=== PATIENT | female | born 1990 | race Caucasian/White ===

== ENCOUNTER → 2016-07-04 | Outpatient (CLI) | payer OTHER ==
[2016-07-04 10:16] LABS: CHCM 34.1; HCT 34.8 % (34.0-46.0); HDW 2.95; MCH 35.6 pg (25.0-35.0); MCHC 34.4 g/dL (31.0-37.0); MCV 103.4 fL (80.0-100.0); Macrocytosis Slight; Mean Platelet Volume 8.4; RBC 3.37 m/uL (3.80-5.40); RDW 13.3 % (11.5-15.5); WBC 7.2 k/uL (3.8-10.6)
== END | disposition home or self-care (01) ==
LOC: LABWHC1 09:50
PROVIDERS: ATTEND Obstetrics & Gynecology
DX: Z34.82 Encounter for supervision of other normal pregnancy, second trimester (principal); Z3A.00 Weeks of gestation of pregnancy not specified
CPT/HCPCS: 36415; 82950; 85027

== ENCOUNTER → 2016-07-14 | Outpatient (CLI) | payer OTHER ==
[2016-07-14 12:45] LABS: Glucose 3 Hour, Gest 93 mg/dL
== END | disposition home or self-care (01) ==
LOC: LABWHC1 08:30
PROVIDERS: ATTEND Obstetrics & Gynecology
DX: O24.419 Gestational diabetes mellitus in pregnancy, unspecified control (principal)
CPT/HCPCS: 36415; 82951; 82952

== ENCOUNTER 2016-08-20 17:07 | Inpatient (IN) | payer OTHER ==
[2016-08-20] MEDS: BETAMET ACET-BETAMETH SOD PHOS 6 MG/ML VIAL IM SCH (17:38)
[2016-08-20] MEDS ORDERED: LACTATED RINGERS 1,000 ML IV SCH (17:45)
[2016-08-20] MEDS: LACTATED RINGERS 1,000 ML IV SCH (19:19)
[2016-08-20] MEDS: NIFEdipine 10 MG CAP PO PRN ×3 (19:24→20:05)
[2016-08-20 20:53] LABS: Basophils % (A) 0 %; CH 35.5; Eosinophils # (A) 0.1 k/uL (0-0.7); Eosinophils % (A) 1 %; HDW 2.71; HGB 11.7 gm/dL (11.4-16.0); Luc % (Auto) 2; Lymphocytes # (A) 2.5 k/uL (1.0-4.8); Lymphocytes % (A) 24 %; MCH 35.1 pg (25.0-35.0); MCHC 33.3 g/dL (31.0-37.0); MCV 105.3 fL (80.0-100.0); Macrocytosis Moderate; Monocytes # (A) 0.8 k/uL (0-1.0); Monocytes % (A) 8 %; Neutrophils # (A) 7.1 k/uL (1.3-7.7); Neutrophils % (A) 66 %; RBC 3.32 m/uL (3.80-5.40); RDW 13.7 % (11.5-15.5); WBC 10.7 k/uL (3.8-10.6); WBC (Perox) 10.73
[2016-08-20 22:16] VITALS: BP 110/72; PULSE 102; RESP 16; TEMP 97; BMI 22.2
[2016-08-21] MEDS: LACTATED RINGERS 1,000 ML IV SCH ×4 (02:07→22:05)
[2016-08-21] MEDS: NIFEdipine 10 MG CAP PO PRN (02:08)
[2016-08-21] MEDS: NIFEdipine 10 MG CAP PO SCH ×3 (07:51→20:01)
--- NOTE | 2016-08-21 08:52 | P.HPOB ---
History of Present Illness H&P Date: 08/21/16 Chief Complaint: Contractions, labor This is a 25-year-old female 1 para 0 with an estimated date of confinement of 10/12/2016, estimated gestational age of 32-3/7 weeks, who presented to labor and delivery complaining of cramping and back pain for the last few days. She was seen in the office yesterday for her routine appointment and found to be dilated 1+ centimeters/70%/-1 station. At this point she was sent over to labor and delivery for steroid administration. She was noted to be miky every minute upon arrival. She was started on Procardia protocol and her contractions did slow down. Obstetrical history: First . 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 No history of sexual transmitted diseases. Review of Systems Genitourinary: Reports pelvic pain, Reports Musculoskeletal: Reports low back pain Past Medical History Additional Past Medical History / Comment(s): Bi cornate uterus History of Any Multi-Drug Resistant Organisms: None Reported Past Surgical History: No Surgical Hx Reported Past Anesthesia/Blood Transfusion Reactions: No Reported Reaction Past Psychological History: No Psychological Hx Reported Smoking Status: Never smoker - Past Family History Mother Family Medical History: No Reported History Medications and Allergies Home Medications Medication Instructions Recorded Confirmed Type Pnv with Ca,No.72/Iron/FA 1 tab PO DAILY 08/20/16 08/20/16 History [ Plus Tablet] Allergies Allergy/AdvReac Type Severity Reaction Status Date / Time No Known Allergies Allergy Verified 08/20/16 17:18 Exam Osteopathic Statement: *. No significant issues noted on an osteopathic structural exam other than those noted in the History and Physical/Consult. - Vital Signs Vital signs: Vital Signs Temp Pulse Resp BP 08/20/16 22:06 97.0 F L 102 H 16 110/72 Intake and Output 08/20/16 08/21/16 08/21/16 22:59 06:59 14:59 Intake Total 1000 Balance 1000 Intake: IV 1000 Lactated Ringers 1,000 ml 1000 @ 150 mls/hr IV .Q6H40M JAE Rx#:[id number] Other: # Voids 1 Weight 49.895 kg HEENT: Within normal limits Heart: Regular rhythm Lungs: Clear to auscultation bilaterally Abdomen: Cervix: 1+ centimeters/70%/-1 station/posterior heart tones: Reactive Contractions: Irregular any where from one to 6 minutes. Extremities: Negative Homans Results Result Diagrams: 08/20/16 17:54 Abnormal Lab Results - Last 24 Hours (Table) 08/20/16 Range/Units 17:54 WBC 10.7 H (3.8-10.6) k/uL RBC 3.32 L (3.80-5.40) m/uL MCV 105.3 H (80.0-100.0) fL MCH 35.1 H (25.0-35.0) pg Assessment and Plan (1) labor in second trimester without delivery Status: Acute Plan: I spoke with Dr. Nolan who has recommended that she stay until her second dose of steroids is in and also continue on Procardia for another 24 hours after her last dose of Celestone. After that as long as her cervix is unchanged, she may be discharged home on pelvic rest. She should continue to keep her appointment with [facility] in 2 weeks as scheduled. She does have an appointment scheduled with myself next week. She is advised she should be off work until that time. Dr. Nolan also did recommend that if she does return or breaks through with contractions and cervical change, she should at that time receive magnesium sulfate and be transferred to [place].
[2016-08-21] MEDS: BETAMET ACET-BETAMETH SOD PHOS 6 MG/ML VIAL IM SCH (17:37)
[2016-08-22] MEDS: NIFEdipine 10 MG CAP PO SCH ×3 (02:02→14:22)
--- NOTE | 2016-08-22 06:50 | P.PN ---
Progress Note - Text This is hospital day #3. Patient is resting without new complaints. Patient is received her second dose of Celestone and is currently continuing the Procardia for total of 24 hours per maternal- medicine directions. Repeat cervical exam today shows no change. Plan today is to allow the patient to shower, continue oral Procardia for total 24 hours, and most likely discharge home on modified bedrest later this evening. Patient will follow up with Dr. Sotomayor on Wednesday as scheduled.
--- NOTE | 2016-08-22 06:54 | P.DS ---
Providers Date of admission: 08/21/16 14:14 Expected date of discharge: 08/22/16 Attending physician: Concepcion Sotomayor Primary care physician: Concepcion Sotomayor [facility] Course: Please see dictated H&P per Dr. Sotomayor on this patient's admission. Brief summary this is a 25-year-old female with known bicornate uterus who is admitted with concerns for premature cervical dilation. Patient is given Celestone and oral Procardia. Patient is watched approximately 24 hours after her last Celestone injection and then thought to be stable for discharge home on modified bedrest. Patient will follow with Dr. Sotomayor on Wednesday as scheduled in the office. Patient is given warnings. Patient Condition at Discharge: Good Plan - Discharge Summary Discharge Medication List Pnv with Ca,No.72/Iron/FA [ Plus Tablet] 1 tab PO DAILY 08/20/16 [ History] Follow up Appointment(s)/Referral(s): Concepcion Sotomayor DO [Primary Care Provider] - 1 Week (Please follow-up with Dr. Sotomayor next week as scheduled.) Patient Instructions/Handouts: Labor (DC) Activity/Diet/Wound Care/Special Instructions: No intercourse or anything per vagina. No strenuous activity or prolonged standing. Please call if greater than 6 contractions per hour that do not resolve with oral hydration. Follow-up with Dr. Sotomayor as scheduled.
== END 2016-08-22 18:00 | disposition home or self-care (01) | DRG 778 ==
LOC: FBPOP 17:07 → 4FBP 20:34 → OBSVTOIN 08-21 14:14
PROVIDERS: ADMIT Obstetrics & Gynecology; ATTEND Obstetrics & Gynecology
DX: O60.02 Preterm labor without delivery, second trimester (principal); O34.02 Maternal care for unspecified congenital malformation of uterus, second trimester; Q51.3 Bicornate uterus; Z3A.32 32 weeks gestation of pregnancy
CPT/HCPCS: 59025; 85025; 96360; 96361; 99214

== ENCOUNTER 2016-09-05 09:27 | Outpatient (CLI) | payer OTHER ==
[2016-09-05 09:48] VITALS: BP 117/79; PULSE 95; RESP 17; TEMP 96.9
== END 2016-09-05 10:32 | disposition home or self-care (01) ==
LOC: FBPOP 09:27
PROVIDERS: ATTEND Obstetrics & Gynecology
DX: O26.93 Pregnancy related conditions, unspecified, third trimester (principal); Z3A.34 34 weeks gestation of pregnancy
CPT/HCPCS: 59025; 99213

== ENCOUNTER 2016-09-12 14:16 | Outpatient (CLI) | payer OTHER | END 2016-09-12 15:06 | disposition home or self-care (01) | LOC: FBPOP 14:16 | PROVIDERS: ATTEND Obstetrics & Gynecology | DX: O26.93 Pregnancy related conditions, unspecified, third trimester (principal); Z3A.35 35 weeks gestation of pregnancy | CPT/HCPCS: 59025 ==

== ENCOUNTER 2016-10-03 17:12 | Outpatient (CLI) | payer OTHER ==
[2016-10-03 18:17] VITALS: BP 122/74; PULSE 80; RESP 17; TEMP 97
== END 2016-10-03 17:55 | disposition home or self-care (01) ==
LOC: FBPOP 17:12
PROVIDERS: ATTEND Obstetrics & Gynecology
DX: O26.93 Pregnancy related conditions, unspecified, third trimester (principal); Z3A.38 38 weeks gestation of pregnancy
CPT/HCPCS: 59025; 99213

== ENCOUNTER 2016-10-04 04:42 | Inpatient (IN) | payer OTHER ==
[2016-10-04] MEDS ORDERED: CARBOPROST TROMETHAMINE 250 MCG/ML 1 ML AMP IM PRN (05:49)
[2016-10-04] MEDS ORDERED: TERBUTALINE 1 MG/ML VIAL SQ PRN (05:49)
[2016-10-04] MEDS ORDERED: METHYLERGONOVINE 0.2 MG/ML 1 ML AMP IM PRN (05:49)
[2016-10-04] MEDS ORDERED: OXYTOCIN 10 UNIT/ML 1 ML VIAL IM PRN (05:49)
[2016-10-04] MEDS ORDERED: LIDOCAINE 1% (PF) 10 MG/ML (30 ML SDV) SQ PRN (05:49)
[2016-10-04] MEDS: LACTATED RINGERS 1,000 ML IV SCH ×2 (05:59→10:21)
[2016-10-04] MEDS ORDERED: OXYTOCIN 20 UNITS/1000 ML NS 1,000 ML IV SCH ×2 (06:00→13:15)
[2016-10-04 06:10] LABS: Basophils % (A) 1 %; CH 35.9; CHCM 34.7; Eosinophils # (A) 0.1 k/uL (0-0.7); Eosinophils % (A) 1 %; HCT 37.1 % (34.0-46.0); HDW 2.89; HGB 12.3 gm/dL (11.4-16.0); Luc # (Auto) 0.21; Luc % (Auto) 2; Lymphocytes % (A) 22 %; MCH 34.7 pg (25.0-35.0); MCHC 33.3 g/dL (31.0-37.0); MCV 104.2 fL (80.0-100.0); Macrocytosis Slight; Monocytes # (A) 0.6 k/uL (0-1.0); Monocytes % (A) 7 %; Neutrophils % (A) 67 %; RBC 3.56 m/uL (3.80-5.40); WBC 8.9 k/uL (3.8-10.6); WBC (Perox) 9.06
[2016-10-04 06:32] VITALS: BMI 22.6
[2016-10-04] MEDS ORDERED: BUTORPHANOL 1 MG/ML 1 ML VIAL IV PRN (07:38)
[2016-10-04] MEDS ORDERED: ACETAMINOPHEN TAB 325 MG TAB PO PRN (13:04)
[2016-10-04] MEDS ORDERED: diphenhydrAMINE 50 MG/ML 1 ML VIAL IVP PRN ×2 (13:04)
[2016-10-04] MEDS ORDERED: BENZOCAINE SPRAY 57GM TOPICAL PRN (13:04)
[2016-10-04] MEDS ORDERED: WITCH HAZEL 1 EACH MED..PAD TOPICAL PRN (13:04)
[2016-10-04] MEDS ORDERED: LANOLIN CREAM 5 GM TUBE TOPICAL PRN (13:04)
[2016-10-04] MEDS ORDERED: ZOLPIDEM 5 MG TAB PO PRN (13:04)
[2016-10-04] MEDS ORDERED: diphenhydrAMINE 50 MG CAP PO PRN (13:04)
[2016-10-04] MEDS ORDERED: diphenhydrAMINE 25 MG CAP PO PRN (13:04)
[2016-10-04] MEDS ORDERED: Acetaminophen-Codeine 300-30mg TAB PO PRN ×2 (13:04)
[2016-10-04] MEDS ORDERED: SIMETHICONE 80 MG CHEWABLE PO PRN (13:04)
[2016-10-04] MEDS ORDERED: HYDROCORTISONE 2.5% RECTAL CREAM 30 GM TUBE RECTAL PRN (13:04)
--- NOTE | 2016-10-04 13:10 | P.HPOB ---
History of Present Illness H&P Date: 10/04/16 Chief Complaint: SROM 25 year old presents at 38 weeks and 6 days with spontaneous rupture membranes at 3 AM. She presented to triage to head or fluid noted, cervix was 37 m dilated, her percent effaced, -1 station. She is miky every 4 minutes. heart tones 130-135 with moderate variability and reactive. 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 The baby is in the right uterus. Review of Systems All systems: negative Constitutional: Denies chills, Denies fever Eyes: denies blurred vision, denies pain Ears, nose, mouth and throat: Denies headache, Denies sore throat Cardiovascular: Denies chest pain, Denies shortness of breath Respiratory: Denies cough Gastrointestinal: Denies abdominal pain, Denies diarrhea, Denies nausea, Denies vomiting Genitourinary: Denies dysuria, Denies hematuria Musculoskeletal: Denies myalgias Integumentary: Denies pruritus, Denies rash Neurological: Denies numbness, Denies weakness Psychiatric: Denies anxiety, Denies depression Endocrine: Denies fatigue, Denies weight change Past Medical History Additional Past Medical History / Comment(s): Uterus didelphys. Surgical history: As was a spontaneous . This is her second . Patient has had care with Dr. Sotomayor since 9 weeks gestation. She did go to maternal medicine in May where they diagnosed her with the didelphys uterus as opposed to a bicornuate uterus. Her cervical lengths were followed and she did get treated for labor a few times. A+, antibodies negative, rubella immune, tHIV negative, hepatitis B negative. History of Any Multi-Drug Resistant Organisms: None Reported Past Surgical History: No Surgical Hx Reported Past Anesthesia/Blood Transfusion Reactions: No Reported Reaction Past Psychological History: No Psychological Hx Reported Smoking Status: Never smoker Past Alcohol Use History: None Reported Past Drug Use History: None Reported - Past Family History Mother Family Medical History: No Reported History Medications and Allergies Home Medications Medication Instructions Recorded Confirmed Type Pnv,Calcium 72/Iron/Folic Acid 1 tab PO DAILY 08/20/16 10/04/16 History [ Plus Tablet] Allergies Allergy/AdvReac Type Severity Reaction Status Date / Time No Known Allergies Allergy Verified 06/03/17 17:21 Exam Osteopathic Statement: *. No significant issues noted on an osteopathic structural exam other than those noted in the History and Physical/Consult. - Vital Signs Vital signs: Vital Signs Temp Pulse Resp BP 10/04/16 05:22 97.0 F L 82 16 117/78 10/04/16 05:18 97.0 F L 82 16 117/78 Intake and Output 10/03/16 10/04/16 10/04/16 22:59 06:59 14:59 Other: # Voids 1 Weight 50.802 kg Heart: Regular rate and rhythm Lungs: Clear to auscultation bilaterally Abdomen: Soft, nontender Extremities: Negative Homans sign Results Result Diagrams: 10/04/16 05:50 Abnormal Lab Results - Last 24 Hours (Table) 10/04/16 Range/Units 05:50 RBC 3.56 L (3.80-5.40) m/uL MCV 104.2 H (80.0-100.0) fL Assessment and Plan (1) Spontaneous rupture of membranes Status: Acute (2) Normal labor Status: Acute (3) Uterus didelphys in Status: Acute Plan: 1. Expectant management 2. Anticipate normal vaginal delivery
--- NOTE | 2016-10-04 13:12 | P.PROBDLV ---
Vaginal Delivery Note - . Vaginal Delivery Note: 25-year-old presented at 38 weeks and 6 days with spontaneous rupture membranes at 3 AM. Clear fluid noted. Her cervix was 3 cm dilated, 100% effaced, and -1 station. She is miky every 4 minutes. She progressed slowly throughout the day and was completely dilated at 11 AM. She pushed, and delivered a viable male over midline episiotomy. Head delivered OA, anterior shoulder delivered gentle downward traction followed by posterior shoulder and rest of body. Nose and mouth bulb suctioned, cord clamped and cut , infant placed on mother's abdomen. Apgars 9, 9, weight 7 lbs. 3 oz. Placenta delivered spontaneously, intact with three-vessel cord. Pitocin was then added to the IV. Vagina, cervix, and perineum were inspected. Second degree midline episiotomy is repaired with 2-0 and 3-0 Vicryl. Estimated blood loss 200 mL. Mother and baby in stable condition.
[2016-10-04] MEDS: IBUPROFEN 600 MG TAB PO PRN (13:22)
[2016-10-04] MEDS: SENNOSIDES-DOCUSATE SODIUM 1 EACH TAB PO SCH (19:18)
[2016-10-05 00:38] VITALS: RESP 16
[2016-10-05] MEDS: IBUPROFEN 600 MG TAB PO PRN ×2 (06:45→16:39)
[2016-10-05] MEDS: LACTATED RINGERS 1,000 ML IV SCH ×2 (07:27→07:28)
--- NOTE | 2016-10-05 08:54 | P.DS ---
Providers Date of admission: 10/04/16 05:11 Expected date of discharge: 10/05/16 Attending physician: Aga Reagan Primary care physician: Aga Reagan [facility] Course: This is a 25-year-old female 2 para 0 at 38-6/7 weeks who presented with active labor. Please see history and physical for details of patient's admission. She delivered vaginally a viable male with scores of 9 at 1 minute and 9 at 5 minutes and weight of 7 lbs. 3 oz. on 10/04/2016. Her course has been essentially uncomplicated. She is still having some trouble with breast-feeding and will see a breast-feeding salon sales consultant today. Lochia is decreasing. Pain is fairly well controlled with ibuprofen. Vital signs are stable. Abdomen is soft with fundus firm and nontender. Extremities show negative Homans. Fashion is status post vaginal delivery day #1. Plan is to discharge home today. Routine instructions are given. She is advised to follow up in the office in 6 weeks for check. She will be given a prescription for ibuprofen and a breast pump. She is advised to call the office if she has any further questions or concerns prior to her appointment time. Procedures: Spontaneous vaginal delivery of a viable male on 10/04/2016. Patient Condition at Discharge: Stable Plan - Discharge Summary New Discharge Prescriptions: New Acetaminophen Tab [Tylenol] 650 mg PO Q4HR PRN tab PRN Reason: Mild Pain Or Fever >= 100.5 diphenhydrAMINE [Benadryl] 25 mg PO Q6HR PRN cap PRN Reason: Mild Itching Ibuprofen [Motrin] 600 mg PO Q6HR PRN #60 tab PRN Reason: Mild Pain Or Fever >= 100.5 Sennosides-Docusate Sodium [Senokot-S] 2 each PO BID@0800,2000 tab Witch Marisela [Tucks Medicated Pads] 1 each TOPICAL DAILY PRN pad PRN Reason: Perineal Discomfort Continue Pnv,Calcium 72/Iron/Folic Acid [ Plus Tablet] 1 tab PO DAILY Discharge Medication List Pnv,Calcium 72/Iron/Folic Acid [ Plus Tablet] 1 tab PO DAILY 08/20/16 [ History] Acetaminophen Tab [Tylenol] 650 mg PO Q4HR PRN tab 10/05/16 [Rx] Ibuprofen [Motrin] 600 mg PO Q6HR PRN #60 tab 10/05/16 [Rx] Sennosides-Docusate Sodium [Senokot-S] 2 each PO BID@0800,2000 tab 10/05/16 [Rx ] Witch Marisela [Tucks Medicated Pads] 1 each TOPICAL DAILY PRN pad 10/05/16 [Rx] diphenhydrAMINE [Benadryl] 25 mg PO Q6HR PRN cap 10/05/16 [Rx] Follow up Appointment(s)/Referral(s): Concepcion Sotomayor DO [Doctor of Osteopathic Medicine] - 6 Weeks Activity/Diet/Wound Care/Special Instructions: Instructions 1. Do not begin any exercise program for 3 weeks. 2. Do not resume sexual relations for 3 weeks or longer if uncomfortable. 3. You may take tub baths or showers at any time. 4. You may use tampons if desired after 3 weeks. 5. Keep the area of episiotomy (stitches) clean and dry. 6. If you are not nursing, wear a good fitting, supportive bra during the day and limit fluid intake for at least 1 week to prevent breast engorgement. 7. Call the office, [phone], within the next week to make appointment for your 6 week checkup if it has not already been made. 8. Report any of the following occurrences to the doctor promptly: a. Heavy, excessive bleeding b. Chills, fever c. Burning or frequency of urination d. Pain or redness and breasts if nursing e. Increasing pain or swelling in episiotomy (stitches). In addition to the above instructions, the following additional should be followed: 1. No heavy lifting or straining (exercising) until after 6 week checkup. 2. Keep abdominal incision clean and dry: You may wear a dressing if more comfortable. 3. Make office appointment for 10 days after going home or as instructed by her doctor. Discharge Disposition: HOME SELF-CARE
[2016-10-05] MEDS: SENNOSIDES-DOCUSATE SODIUM 1 EACH TAB PO SCH ×2 (09:12→20:02)
[2016-10-06] MEDS: SENNOSIDES-DOCUSATE SODIUM 1 EACH TAB PO SCH (08:15)
[2016-10-06 08:27] VITALS: BP 125/68; PULSE 88; TEMP 98
[2016-10-06] MEDS ORDERED: DIPH,PERTUS(ACELL)TETVAC-LF 0.5 ML VIAL IM ONE (12:40)
== END 2016-10-06 13:30 | disposition home or self-care (01) | DRG 775 ==
LOC: FBPOP 04:42 → 4FBP 05:11
PROVIDERS: ADMIT Obstetrics & Gynecology; ATTEND Obstetrics & Gynecology
PROC: 10E0XZZ Delivery of Products of Conception, External Approach (ICD-10-PCS; principal; 2016-10-04)
PROC: 0W8NXZZ Division of Female Perineum, External Approach (ICD-10-PCS; 2016-10-04)
PROC: 3E0234Z Introduction of Serum, Toxoid and Vaccine into Muscle, Percutaneous Approach (ICD-10-PCS; 2016-10-06)
DX: O34.03 Maternal care for unspecified congenital malformation of uterus, third trimester (principal); Z23 Encounter for immunization; Q51.10 Doubling of uterus with doubling of cervix and vagina without obstruction; Z3A.38 38 weeks gestation of pregnancy; Z37.0 Single live birth; Z79.899 Other long term (current) drug therapy
CPT/HCPCS: 59025; 84112; 85025; 88307; 90715; 99213